=== PATIENT | male | born 1960 | race Caucasian/White ===

== ENCOUNTER 2024-04-05 06:09 | Day surgery (SDC) | payer MEDICARE, OTHER, SELFPAY ==
--- NOTE | 2024-02-28 13:11 | CM ---
Patient is scheduled for an elective L TKR on 04/05/24- he is a same day patient. Spoke with patient prior to surgery. Patient had a R TKR at in July 2023 (also as a same day patient). reintroduced role of Orthopedic Navigator. Patient reports
that he lives with his in a two story home. There are three steps to enter and a flight of steps to the second floor. He currently functions independently. He has a cane, raised toilet seat, hip kit and rolling walker. He had [facility]N services
through [facility] after his prior TKR. PCP is Christiano Javier.
Discussed orthopedic program and post surgical plans. Reviewed that he will have [facility] services initially ([email or web address].gov website and ratings reviewed) and will then start outpatient PT. Patient selects [facility] (face sheet faxed to [facility] to facilitate
confirmation of benefits) for his home care needs and will go to [facility] for outpatient PT.
Patient is in agreement with plan and states that his will be home with him.
Patient will complete online education.
Plan: Orthopedic Navigator will remain available to assist with the care of patient and will reassess discharge needs after surgery.
[2024-03-16 09:02] VITALS: BMI 28.6
[2024-03-16 10:15] LABS: Hematocrit 49.3 % (39.0-52.0); Hemoglobin 17.2 g/dL (13.0-18.0); Mean Corp Hgb Conc. 34.9 g/dL (33.0-37.0); Mean Corpuscular Hgb 32.8 pg (27.0-31.0); Mean Corpuscular Volume 93.9 fL (80.0-94.0); Mean Platelet Volume 9.4 fL (7.4-10.4); Platelet Count 216 10^3/uL (130-400); Red Blood Cell Count 5.25 10^6/uL (4.70-6.10); Red Cell Dist. Width 12.8 % (11.5-14.5)
[2024-03-16 11:13] LABS: ALT (SGPT) 31 U/L (0-50); AST (SGOT) 36 U/L (17-59); Albumin 4.7 g/dl (3.5-5.0); Alkaline Phosphatase 144 U/L (38-126); Blood Urea Nitrogen 16 mg/dl (9-20); Calcium 9.8 mg/dl (8.4-10.2); Carbon Dioxide 27 mmol/L (22-30); Chloride 104 mmol/L (98-107); Estimated Creatinine Clearance 85 ml/min; Glucose 90 mg/dl (70-99); Potassium 4.8 mmol/L (3.5-5.1); Sodium 141 mmol/L (135-145); Total Bilirubin 1.7 mg/dl (0.2-1.3); Total Protein 7.7 g/dl (6.3-8.2); eGFR > 60.00
[2024-03-16 11:50] LABS: Glycohemoglobin (HgbA1c) 5.2 % (4.0-5.6)
[2024-03-17 09:46] VITALS: BMI 28.6
[2024-04-05] VITALS (12 sets, daily range): BP systolic 84–137; BP diastolic 54–91; PULSE 78; O2SAT 96; BMI 28.6
[2024-04-05] MEDS: NORMOSOL-R 1000 IV (06:35)
[2024-04-05] MEDS: CELEBREX 200 MG PO (06:35)
[2024-04-05] MEDS: TYLENOL 650 MG PO (06:35)
[2024-04-05] MEDS: BACTROBAN NASAL 1 GRAM NASAL (06:36)
--- NOTE | 2024-04-05 07:23 | W.DS.TRANS ---
DC Summary - Investigator Welfare
-
Discharge Instructions:
Sleep Apnea Risk Intermediate
Discharge Diagnosis/Procedures R TKA 04/05/24
Diet As tolerated
Activity With Walker
Driving Restrictions No driving
Bathing Restrictions OK to Shower
Instructions:
Stand-Alone Forms: SDS Total Hip and Knee D/C
Changes to Home Medications: Yes
Discharge Medications:
DC Medications w/original date entered in [employer]
pantoprazole 20 mg tablet,delayed release (Protonix) 20 mg PO DAILY Gastrointestinal issue 08/17/22
rosuvastatin 5 mg tablet 5 mg PO DAILY High cholesterol 08/17/22
diltiazem HCl 180 mg capsule,extended release 24 hr 180 mg PO DAILY #30 caps 01/29/23
furosemide 40 mg tablet (Lasix) 20 mg PO DAILY 03/14/24
dexamethasone 4 mg tablet 4 mg PO BID inflammation #6 tabs 03/16/24
gabapentin 300 mg capsule 300 mg PO HS sleep/pain #10 caps 03/16/24
mupirocin 2 % topical ointment 1 applic topical BID infection prevention #1 tube 03/16/24
oxycodone 5 mg tablet 5 mg PO Q6H PRN 1 tab moderate pain, 2 tabs severe pain #30 tabs 03/16/24
ondansetron 4 mg disintegrating tablet 4 mg PO Q6H PRN n/v #20 tabs 03/17/24
acetaminophen 500 mg tablet (Acetaminophen Extra Strength) 1,000 mg (2 x 500 mg) PO QID #0 tabs 04/05/24
apixaban 5 mg tablet (Eliquis) 2.5 mg (1/2 x 5 mg) PO BID #0 tabs 04/05/24
docusate sodium 100 mg capsule (Colace) 100 mg PO BID stool softner #1 cap 04/05/24
losartan 100 mg tablet 100 mg PO DAILY #30 tabs 04/05/24
magnesium hydroxide 400 mg/5 mL oral suspension (Milk of Magnesia) 30 ml PO HS PRN Constipation #1 mL 04/05/24
sennosides 8.6 mg tablet (Senokot) 17.2 mg (2 x 8.6 mg) PO BID laxative #2 tabs 04/05/24
sildenafil 50 mg tablet 50 mg PO DAILY ED #0 tabs 04/05/24
Home Medication Changes
dexamethasone 4 mg tablet 4 mg PO BID inflammation #6 tabs 03/16/24
gabapentin 300 mg capsule 300 mg PO HS sleep/pain #10 caps 03/16/24
mupirocin 2 % topical ointment 1 applic topical BID infection prevention #1 tube 03/16/24
oxycodone 5 mg tablet 5 mg PO Q6H PRN 1 tab moderate pain, 2 tabs severe pain #30 tabs 03/16/24
ondansetron 4 mg disintegrating tablet 4 mg PO Q6H PRN n/v #20 tabs 03/17/24
apixaban 5 mg tablet (Eliquis) 2.5 mg (1/2 x 5 mg) PO BID #0 tabs 04/05/24
Pending Results: No
--- NOTE | 2024-04-05 09:49 | CM ---
Patient had planned R TKR today. Met with patient and his at bedside to review discharge plans. Patient will be returning home today with services through [facility]. On Wednesday, 04/10, patient will start outpatient PT at [facility]. Reviewed MD
follow up in two weeks and patient is aware of need to schedule appointment.
Patient has his rolling walker here with him.
PT and [facility] were kept updated as to progress and discharge plans.
[2024-04-05] MEDS: ANCEF 5 IV (11:06)
== END 2024-04-05 11:38 | disposition home or self-care (01) ==
LOC: SDS 06:09
PROVIDERS: ATTENDING PHYSICIAN Orthopaedic Surgery; FAMILY PHYSICIAN Family Medicine; OTHER PHYSICIAN Internal Medicine Cardiovascular Disease; OTHER PHYSICIAN Physician Assistant Medical
DX: M17.11 Unilateral primary osteoarthritis, right knee (principal)
CPT/HCPCS: 27447; 36415; 73560; 80053; 83036; 85027; 87070; 97116; 97161; C1713; C1776

== ENCOUNTER → 2024-05-30 09:40 | Outpatient (REF) | payer MEDICARE, OTHER, SELFPAY | LOC: RCS 09:40 | PROVIDERS: ATTENDING PHYSICIAN Internal Medicine Cardiovascular Disease; FAMILY PHYSICIAN Family Medicine | DX: R06.02 Shortness of breath (principal) | CPT/HCPCS: 93017; 93350 ==

== ENCOUNTER → 2024-11-29 10:04 | Outpatient (REF) | payer MEDICARE, OTHER, SELFPAY | LOC: EMG 10:04 | PROVIDERS: ATTENDING PHYSICIAN Orthopaedic Surgery Hand Surgery; FAMILY PHYSICIAN Family Medicine | DX: M79.642 Pain in left hand (principal); M79.641 Pain in right hand; G56.21 Lesion of ulnar nerve, right upper limb; R20.0 Anesthesia of skin | CPT/HCPCS: 95886; 95911 ==

== ENCOUNTER → 2024-12-18 07:32 | Outpatient (REF) | payer MEDICARE, OTHER, SELFPAY ==
[2024-12-18 08:52] LABS: Hematocrit 48.1 % (39.0-52.0); Hemoglobin 16.6 g/dL (13.0-18.0); Mean Corp Hgb Conc. 34.5 g/dL (33.0-37.0); Mean Corpuscular Hgb 33.2 pg (27.0-31.0); Mean Corpuscular Volume 96.2 fL (80.0-94.0); Mean Platelet Volume 9.7 fL (7.4-10.4); Platelet Count 198 10^3/uL (130-400); Red Cell Dist. Width 13.3 % (11.5-14.5); White Blood Cell Count 5.3 10^3/uL (4.8-10.8)
== END ==
LOC: SDSPAT 07:32
PROVIDERS: ATTENDING PHYSICIAN Orthopaedic Surgery Hand Surgery; FAMILY PHYSICIAN Family Medicine
DX: Z01.818 Encounter for other preprocedural examination (principal)
CPT/HCPCS: 85027; 93005

== ENCOUNTER 2024-12-26 06:20 | Day surgery (SDC) | payer MEDICARE, OTHER, SELFPAY ==
[2024-12-18 14:13] VITALS: BMI 28.1
[2024-12-26] VITALS (9 sets, daily range): BP systolic 119–146; BP diastolic 81–101; BMI 28.1
[2024-12-26] MEDS: CELEBREX 200 MG PO (07:46)
[2024-12-26] MEDS: NORMOSOL-R/PLASMALYTE-A 1000 IV (07:46)
[2024-12-26] MEDS: TYLENOL 1000 MG PO (07:47)
[2024-12-26] MEDS: SUBLIMAZE 25 MCG IV ×3 (10:21→10:49)
[2024-12-26] MEDS: ROXICODONE 5 MG PO (11:30)
== END 2024-12-26 12:56 | disposition home or self-care (01) ==
LOC: SDS 06:20
PROVIDERS: ATTENDING PHYSICIAN Orthopaedic Surgery Hand Surgery
DX: G56.03 Carpal tunnel syndrome, bilateral upper limbs (principal); G56.21 Lesion of ulnar nerve, right upper limb
CPT/HCPCS: 64905; 64718; 64721; 26492; C1713

== ENCOUNTER 2025-01-05 09:03 | Outpatient (RCR) | payer MEDICARE, OTHER, SELFPAY | END 2025-01-05 23:59 | disposition home or self-care (01) | LOC: ROT 09:03 | PROVIDERS: ATTENDING PHYSICIAN Student in an Organized Health Care Education/Training Program; FAMILY PHYSICIAN Family Medicine | DX: G56.01 Carpal tunnel syndrome, right upper limb (principal); Z73.6 Limitation of activities due to disability | CPT/HCPCS: 97760 ==

== ENCOUNTER → 2025-07-25 08:40 | Outpatient (REF) | payer MEDICARE, OTHER, SELFPAY | LOC: RCS 08:40 | PROVIDERS: ATTENDING PHYSICIAN Internal Medicine Cardiovascular Disease; FAMILY PHYSICIAN Family Medicine | DX: I50.32 Chronic diastolic (congestive) heart failure (principal) | CPT/HCPCS: 93306 ==